=== PATIENT | female | born 1970 | race African-American/Black ===

== ENCOUNTER 2022-10-14 20:24 | Inpatient (IN) | payer OTHER ==
[2022-10-14] MEDS ORDERED: ONDANSETRON *ODT* 4 MG TABLET SL PRN (22:42)
[2022-10-14] MEDS ORDERED: IBUPROFEN 600 MG TABLET (FP) PO PRN (22:42)
[2022-10-14] MEDS ORDERED: BENZOCAINE/MENTHOL (CHLORASEPTIC ) LOZENGE MM PRN (22:42)
[2022-10-14] MEDS ORDERED: DICYCLOMINE HCL 10 MG CAPSULE PO PRN (22:42)
[2022-10-14] MEDS ORDERED: NICOTINE POLACRILEX 2 MG GUM BUC PRN (22:42)
[2022-10-14] MEDS ORDERED: P-EPHED 60MG/TRIPROLIDI 2.5MG TABLET PO PRN (22:42)
[2022-10-14] MEDS ORDERED: MAG HYDROX/AL HYDROX/SIMETH 30 ML UNIT-DOSE CUP PO PRN (22:42)
[2022-10-14] MEDS ORDERED: BISMUTH SUBSALICYLATE 524 MG/30 ML PO PRN (22:42)
[2022-10-14] MEDS ORDERED: guaiFENesin 600 MG TABLET.ER (FP) PO PRN (22:42)
[2022-10-14] MEDS ORDERED: NALOXONE HCL 0.4 MG/ML VIAL IM PRN (22:42)
[2022-10-14] MEDS ORDERED: NALOXONE HCL (KLOXXADO) 8 MG SPRAY NS PRN (22:42)
[2022-10-14] MEDS ORDERED: MAGNESIUM HYDROX 2400MG/30ML ORAL SUSPENSION 30 ML CUP PO PRN (22:42)
[2022-10-14] MEDS ORDERED: MELATONIN 5 MG TABLETS PO PRN (22:42)
[2022-10-14] MEDS ORDERED: BENZONATATE 200 MG CAPSULE PO PRN (22:42)
[2022-10-14] MEDS ORDERED: LOPERAMIDE HCL 2 MG CAPSULE PO PRN (22:42)
[2022-10-14] MEDS ORDERED: POLYETHYLENE GLYCOL (HEALTHYLAX) 3350 17 GM PACKET PO PRN (22:42)
[2022-10-14] MEDS ORDERED: ACETAMINOPHEN 325 MG TABLET (FP) PO PRN (22:42)
[2022-10-14] MEDS ORDERED: IBUPROFEN 400 MG TABLET (FP) PO PRN (22:42)
[2022-10-14 23:19] VITALS: BMI 31.1
[2022-10-15] MEDS ORDERED: diazePAM 5 MG TABLET PO PRN (09:06)
[2022-10-15] MEDS: PRENATAL VITAMINS W/ FOLIC ACID TABLET (FP) PO SCH (10:24)
[2022-10-15 11:15] LABS: HEMATOCRIT 40.2 % (32.4-45.2); HEMOGLOBIN 12.7 GM/dL (10.7-15.3); MCH 29.4 pg (25.7-33.7); MCHC 31.7 g/dl (32.0-36.0); MEAN CELL VOLUME 92.8 fl (80-96); MEAN PLT VOLUME 9.5 fl (7.5-11.1); PLATELET COUNT 194 10^3/uL (134-434); POTASSIUM 3.7 mmol/L (3.5-5.1); RBC 4.33 M/mm3 (3.60-5.2); RDW 14.1 % (11.6-15.6); WHITE BLOOD COUNT 3.9 K/mm3 (4.0-10.0)
[2022-10-15 11:18] LABS: ALBUMIN 3.8 g/dl (3.4-5.0); CALCIUM 9.1 mg/dL (8.5-10.1)
[2022-10-15 11:19] LABS: BLOOD UREA NITROGEN 12.2 mg/dL (7-18)
[2022-10-15 11:22] LABS: CREATININE 0.7 mg/dL (0.55-1.3)
[2022-10-15 11:23] LABS: BILIRUBIN,TOTAL 0.5 mg/dL (0.2-1); TOT PROT 6.5 g/dl (6.4-8.2)
[2022-10-15] MEDS ORDERED: methaDONE HCL 10 MG TABLET PO ONE (17:05)
[2022-10-15] MEDS ORDERED: THIAMINE HCL 100 MG TABLET (FP) PO SCH (22:00)
[2022-10-16] MEDS ORDERED: methaDONE HCL 10 MG TABLET PO SCH (08:45)
[2022-10-16 08:59] VITALS: BP 128/71; PULSE 58; RESP 20; TEMP 97.8
[2022-10-16] MEDS: PRENATAL VITAMINS W/ FOLIC ACID TABLET (FP) PO SCH (09:10)
== END 2022-10-16 11:17 | disposition home or self-care (01) | DRG 774 ==
LOC: YASAS 20:24 → Y3N 23:19
PROVIDERS: ADMIT Allergy & Immunology; ATTEND Surgery
PROC: HZ2ZZZZ Detoxification Services for Substance Abuse Treatment (ICD-10-PCS; principal; 2022-10-14)
DX: F10.230 Alcohol dependence with withdrawal, uncomplicated (principal); F14.20 Cocaine dependence, uncomplicated; F17.210 Nicotine dependence, cigarettes, uncomplicated; M54.59 Other low back pain; G89.29 Other chronic pain; Z91.148 Patient's other noncompliance with medication regimen for other reason; Z56.0 Unemployment, unspecified; Z59.01 Sheltered homelessness
CPT/HCPCS: 36415; 80053; 85027; 86780; 87635; 87811; 93005; 93010

== ENCOUNTER 2023-07-07 21:11 | Inpatient (IN) | payer OTHER ==
[2023-07-07 22:26] VITALS: BMI 26.9
[2023-07-07] MEDS ORDERED: POLYETHYLENE GLYCOL (HEALTHYLAX) 3350 17 GM PACKET PO PRN (22:34)
[2023-07-07] MEDS ORDERED: NALOXONE HCL 0.4 MG/ML VIAL IM PRN (22:34)
[2023-07-07] MEDS ORDERED: BENZOCAINE/MENTHOL (CHLORASEPTIC ) LOZENGE MM PRN (22:34)
[2023-07-07] MEDS ORDERED: MAGNESIUM HYDROX 2400MG/30ML ORAL SUSPENSION 30 ML CUP PO PRN (22:34)
[2023-07-07] MEDS ORDERED: guaiFENesin 600 MG TABLET.ER (FP) PO PRN (22:34)
[2023-07-07] MEDS ORDERED: BENZONATATE 200 MG CAPSULE PO PRN (22:34)
[2023-07-07] MEDS ORDERED: NALOXONE HCL (KLOXXADO) 8 MG SPRAY NS PRN (22:34)
[2023-07-07] MEDS ORDERED: NICOTINE POLACRILEX 2 MG GUM BUC PRN (22:34)
[2023-07-08] MEDS: MELATONIN 5 MG TABLETS PO SCH (00:14)
[2023-07-08] MEDS ORDERED: methaDONE HCL 10 MG TABLET PO SCH (09:00)
[2023-07-08] MEDS: NICOTINE 14 MG/24 HOURS TOPICAL PATCH TD SCH (09:17)
[2023-07-08] MEDS: PRENATAL VITAMINS W/ FOLIC ACID TABLET (FP) PO SCH (09:18)
[2023-07-08 11:50] LABS: PH,URINE 5.5 (5.0-8.0); URINE APPEARANCE CLEAR; URINE BILIRUBIN NEGATIVE (NEGATIVE); URINE COLOR YELLOW; URINE GLUCOSE (UA) NEGATIVE (NEGATIVE); URINE KETONE TRACE (NEGATIVE); URINE LEUK ESTERASE NEGATIVE (NEGATIVE); URINE NITRITE NEGATIVE (NEGATIVE); URINE PROTEIN NEGATIVE (NEGATIVE)
[2023-07-08 12:38] LABS: SYPHILIS W/ RPR CONF NON-REACTIVE (NONREACTIVE)
[2023-07-08] MEDS: FLU VACCINE (FLULAVAL) PF 60 MCG/0.5 ML SYRINGE 2023-2024 IM ONE (15:28)
[2023-07-08] MEDS: THIAMINE HCL 100 MG TABLET (FP) PO SCH (22:04)
[2023-07-09] MEDS: ACETAMINOPHEN 325 MG TABLET (FP) PO PRN (02:48)
[2023-07-09] MEDS: MAG HYDROX/AL HYDROX/SIMETH 30 ML UNIT-DOSE CUP PO PRN (02:51)
[2023-07-09] MEDS: IBUPROFEN 600 MG TABLET (FP) PO PRN (09:50)
[2023-07-09] MEDS ORDERED: methaDONE HCL 40 MG DISPERSABLE TABLET PO SCH (15:42)
[2023-07-09] MEDS: TUBERCULIN PPD 5 TU/0.1ML VIAL ID ONE (16:11)
[2023-07-10] MEDS: methaDONE 80 MG, methaDONE 20 MG PO SCH (06:11)
[2023-07-10] MEDS: LOPERAMIDE HCL 2 MG CAPSULE PO PRN (17:10)
[2023-07-13] MEDS ORDERED: MELATONIN 5 MG TABLETS PO PRN (22:00)
[2023-07-14] MEDS: DIPHENOXYLATE 2.5/ATROPINE.025 1 COMBO TABLET PO PRN (13:46)
[2023-07-14] MEDS: DICYCLOMINE HCL 10 MG CAPSULE PO PRN (13:46)
[2023-07-17 06:44] VITALS: RESP 18
[2023-07-17] MEDS ORDERED: DIPHENOXYLATE 2.5/ATROPINE.025 1 COMBO TABLET PO PRN (10:40)
[2023-07-17 13:55] LABS: BASO % 0.5 % (0-2.0); EOS % 5.5 % (0-4.5); HEMATOCRIT 34.4 % (32.4-45.2); LYMPH % 33.1 % (8-40); MCH 29.1 pg (25.7-33.7); MONO % 10.2 % (3.8-10.2); NEUT % 50.7 % (42.8-82.8); PLATELET COUNT 168 10^3/uL (134-434); RBC 3.79 M/mm3 (3.60-5.2); RDW 13.6 % (11.6-15.6)
[2023-07-17 13:57] LABS: POTASSIUM 3.7 mmol/L (3.5-5.1)
[2023-07-17 14:10] LABS: ALBUMIN 3.4 g/dl (3.4-5.0); BLOOD UREA NITROGEN 13.7 mg/dL (7-18); CALCIUM 8.4 mg/dL (8.5-10.1)
[2023-07-17 14:11] LABS: MAGNESIUM 2.1 mg/dL (1.8-2.4)
[2023-07-17 14:13] LABS: CREATININE 0.7 mg/dL (0.55-1.3); PHOSPHOROUS 3.9 mg/dL (2.5-4.9)
[2023-07-17 14:15] LABS: BILIRUBIN,TOTAL 0.6 mg/dL (0.2-1); TOT PROT 6.3 g/dl (6.4-8.2)
[2023-07-18] MEDS ORDERED: PATIENT'S OWN MEDICATION (NON-FORMULARY) (Brimonidine Tartrate/Timolol [Brimonidine-Timolo OU SCH (22:00)
[2023-07-18] MEDS: BRIMONIDINE TARTRATE 0.2% OPHTHALMIC 5 ML BOTTLE OU SCH (22:08)
[2023-07-18] MEDS: TIMOLOL 0.5% OPHTHALMIC SOL 5 ML BOTTLE OU SCH (22:08)
[2023-07-18] MEDS: LATANOPROST 0.005% OPHTH SOLN 2.5ML BOTTLE OU SCH (22:09)
[2023-07-19] MEDS ORDERED: hydrOXYzine PAMOATE 25 MG CAPSULE (FP) PO PRN (09:45)
[2023-07-19] MEDS: SUVOREXANT 5 MG TABLET PO PRN (21:26)
[2023-07-20] MEDS: IBUPROFEN 400 MG TABLET (FP) PO PRN (14:48)
[2023-07-20] MEDS: ALBUTEROL SO4 HFA INHALER IH PRN (18:09)
[2023-07-21 12:13] VITALS: PULSE 63
[2023-07-22 06:38] VITALS: BP 142/73; TEMP 98
== END 2023-07-22 06:42 | disposition home or self-care (01) | DRG 772 ==
LOC: YASAS 21:11 → Y3NR 23:22 → Y5N 07-08 13:39
PROVIDERS: ADMIT Allergy & Immunology; ATTEND Psychiatry & Neurology Pain Medicine
PROC: HZ42ZZZ Group Counseling for Substance Abuse Treatment, Cognitive-Behavioral (ICD-10-PCS; principal; 2023-07-07)
DX: F10.20 Alcohol dependence, uncomplicated (principal); F11.20 Opioid dependence, uncomplicated; F14.20 Cocaine dependence, uncomplicated; F17.210 Nicotine dependence, cigarettes, uncomplicated; F31.9 Bipolar disorder, unspecified; H40.9 Unspecified glaucoma; I10 Essential (primary) hypertension; J44.9 Chronic obstructive pulmonary disease, unspecified; M19.90 Unspecified osteoarthritis, unspecified site; M54.50 Low back pain, unspecified; G89.29 Other chronic pain; R73.03 Prediabetes; R26.89 Other abnormalities of gait and mobility; Z99.89 Dependence on other enabling machines and devices; Z91.81 History of falling; Z59.01 Sheltered homelessness
CPT/HCPCS: 36415; 70450-TC; 71045-TC-FY; 72125-TC; 72170-TC-FY; 74177-TC; 80048; 80053; 80307; 81003; 82140; 82652; 83605; 83690; 83735; 84100; 84443; 84484; 85025; 85027; 85610; 85730; 86780; 86803; 87086; 90471; 90686; 90715; 93005; 93010; 93306-TC; 96361; 96374; 99284-25; G0008; G0378; Q9967